=== PATIENT | male | born 1990 | race Two or more races ===

== ENCOUNTER 2016-06-11 05:03 | Emergency (ER) | payer BC ==
[~2016-06-11] VITALS: Ht 172.7 cm; Wt 81.6 kg
[2016-06-11 06:28] VITALS: BP 151/90
[2016-06-11] MEDS ORDERED: CYCL5TAB PO (06:28)
--- NOTE | 2016-06-11 06:28 | PHYS DOC ---
Past Medical History Past Medical History: No Pertinent History Past Surgical History: No Surgical History Alcohol Use: Rarely Drug Use: None Adult General Chief Complaint Chief Complaint: Neck Pain HPI HPI Patient is a 26 year old male who presents with right neck pain and spasms since waking this morning. Pain is constant and severe. Tried icy hot prior to arrival with no relief. Took no other meds. Denies injury, f/c, n/v, headache, numbness, tingling, weakness, sore throat, difficulty breathing or swallowing. Review of Systems Review of Systems Constitutional: Denies fever or chills [] Eyes: Denies change in visual acuity, redness, or eye pain [] HENT: Denies nasal congestion or sore throat [] Respiratory: Denies cough or shortness of breath [] Cardiovascular: No additional information not addressed in HPI [] GI: Denies abdominal pain, nausea, vomiting, bloody stools or diarrhea [] : Denies dysuria or hematuria [] Musculoskeletal: Denies back pain or joint pain [] Integument: Denies rash or skin lesions [] Neurologic: Denies headache, focal weakness or sensory changes [] Endocrine: Denies polyuria or polydipsia [] Current Medications Current Medications Current Medications Medications (Trade) Dose Ordered Sig/Caroline Start Time Stop Time Status Last Admin Dose Admin Cyclobenzaprine HCl (Flexeril) 10 mg 1X ONCE 06/11/16 07:00 06/11/16 07:01 06/11/16 06:27 10 MG Ibuprofen (Motrin) 400 mg 1X ONCE 06/11/16 07:00 06/11/16 07:01 06/11/16 06:27 400 MG Allergies Allergies Allergies Coded Allergies Type Severity Reaction Last Updated Verified No Known Drug Allergies 06/11/16 No Physical Exam Physical Exam Constitutional: Well developed, well nourished, no acute distress, non-toxic appearance. [] HENT: Normocephalic, atraumatic, bilateral external ears normal, oropharynx moist, no oral exudates, nose normal. [] Eyes: PERRLA, EOMI. [] Neck: Normal range of motion, no midline spinal tenderness, supple. Has tenderness about right lateral neck muscles with no palpable or visual abnormality [] Cardiovascular:Heart rate regular rhythm [] Lungs & Thorax: Bilateral breath sounds clear to auscultation [] Abdomen: soft, no tenderness. [] Skin: Warm, dry, no erythema, no rash. [] Back: Normal ROM. [] Extremities: ROM intact, ambulatory with a steady gait. [] Neurologic: Alert and oriented X 3, normal motor function, normal sensory function, no focal deficits noted. [] Psychologic: Affect normal, judgement normal, mood normal. [] Current Patient Data Vital Signs Vital Signs Date Time Temp Pulse Resp B/P Pulse Ox O2 Delivery O2 Flow Rate FiO2 06/11/16 06:28 92 16 151/90 06/11/16 05:28 98.6 99 Room Air 98.6 Course & Med Decision Making Course & Med Decision Making Offered IM meds, but he prefers po. Discussed symptomatic care for muscle spasms. Return precautions given. He understands and agrees with plan. Dragon Disclaimer Dragon Disclaimer This electronic medical record was generated, in whole or in part, using a voice recognition dictation system. Departure Departure Impression: Primary Impression: Neck pain on right side Disposition: HOME, SELF-CARE Condition: STABLE Referrals: NO PCP (PCP) Patient Instructions: Muscle Cramps, [id number] Additional Instructions: Take ibuprofen as needed for pain. Take cyclobenzaprine as needed for muscle spasm. Do not drink, drive or operate heavy machinery after taking cyclobenzaprine as it may make you sleepy. Follow-up with your primary care doctor. Return for any concerns. Scripts Cyclobenzaprine Hcl 5 Mg Tablet1 Tab PO TID PRN MUSCLE SPASMS #10 TAB Prov:Deep SHAFFER MD 06/11/16 Deep SAHFFER MD Jun 11, 2016 06:28
[2016-06-11] MEDS ORDERED: CYCLOBENZAPRINE 10 MG TABLET. PO ONE (07:00)
[2016-06-11] MEDS ORDERED: IBUPROFEN 400 MG TABLET. PO ONE (07:00)
== END 2016-06-11 06:30 | disposition home or self-care (01) ==
LOC: ER 05:03
DX: M54.2 Cervicalgia (principal)
CPT/HCPCS: 99283